=== PATIENT | male | born 1960 | race Caucasian/White ===

== ENCOUNTER 2021-01-05 00:28 | Emergency (ER) | payer SELFPAY, OTHER ==
[2021-01-05 01:20] LABS: HEMOGLOBIN 16.8 gm/dl (14.0-17.5); RED BLOOD COUNT 5.42 M/UL (4.20-5.50); WHITE BLOOD COUNT 6.4 K/UL (4.5-11.0)
[2021-01-05 01:36] LABS: BUN/CREATININE RATIO 21 (0-10)
== END 2021-01-05 06:13 | disposition home or self-care (01) ==
LOC: ER1 00:28
PROVIDERS: Emergency Medicine
DX: R31.9 Hematuria, unspecified (principal); R07.9 Chest pain, unspecified
CPT/HCPCS: 71045; 80053; 81001; 82550; 82553; 83690; 83735; 83874; 84484; 85025; 85379; 93005; 96365; 99285